=== PATIENT | female | born 2000 | race American Indian/Alaskan Native ===

== ENCOUNTER 2018-09-04 07:07 | Inpatient (IN) | payer MEDICAID ==
[2018-09-04] MEDS ORDERED: LACTATED RINGERS 1,000 ML ONE (07:41)
[2018-09-04 08:06] LABS: Basophils # (Auto) 0.1 K/mm3 (0.0-0.1); Basophils % (Auto) 0.6 % (0.0-1.8); Eosinophils # (Auto) 0.1 K/mm3 (0.0-0.4); Eosinophils % (Auto) 0.9 % (0.0-4.3); Hematocrit 34.3 % (30.3-42.9); Hemoglobin 11.6 gm/dl (10.1-14.3); Lymphocytes # (Auto) 2.6 K/mm3 (1.2-5.4); Lymphocytes % (Auto) 21.1 % (13.4-35.0); Mean Corpuscular HGB Conc 34 % (30-34); Mean Corpuscular Volume 91 fl (79-97); Monocytes # (Auto) 1.1 K/mm3 (0.0-0.8); Monocytes % (Auto) 8.6 % (0.0-7.3); Platelet Count 238 K/mm3 (140-440); Red Blood Count 3.77 M/mm3 (3.65-5.03); Red Cell Distribution Width 13.4 % (13.2-15.2)
[2018-09-04] MEDS: LACTATED RINGERS 1,000 ML IV SCH ×2 (08:23→09:20)
[2018-09-04] MEDS ORDERED: AMPICILLIN/NS 2 GM/100 ML 2 GM/100 ML BAG IV ONE ×2 (08:30→08:33)
[2018-09-04] MEDS ORDERED: BRETHINE IVP PRN (08:33)
[2018-09-04] MEDS ORDERED: SUBLIMAZE IV PRN (08:33)
[2018-09-04] MEDS ORDERED: XYLOCAINE 2% INFILTRATI ONE (08:33)
[2018-09-04] MEDS ORDERED: STADOL IV PRN (08:33)
[2018-09-04] MEDS ORDERED: ZOFRAN IV PRN ×2 (08:33→11:16)
[2018-09-04] MEDS ORDERED: BRETHINE SUB-Q PRN (08:33)
[2018-09-04] MEDS ORDERED: PITOCin/NS 30 UNIT/500ML 30 UNITS/500 ML BAG IV SCH ×2 (09:00)
[2018-09-04] MEDS ORDERED: LACTATED RINGERS 1,000 ML IV SCH (09:00)
[2018-09-04] MEDS ORDERED: PITOCin/NS 20 UNIT/1000ML DRIP 20 UNITS/1,000 ML BAG IV SCH ×2 (09:00→12:00)
--- NOTE | 2018-09-04 09:10 | Anesthesia Consultation ---
Anesthesia Consult and Med Hx - Airway Anesthetic Teeth Evaluation: Good ROM Head & Neck: Adequate Mental/Hyoid Distance: Adequate Mallampati Class: Class I Intubation Access Assessment: Good - Pulmonary Exam CTA: Yes - Cardiac Exam Cardiac Exam: RRR - Pre-Operative Health Status ASA Pre-Surgery Classification: ASA2 Proposed Anesthetic Plan: Epidural - Pulmonary Hx Smoking: No Hx Asthma: No - Cardiovascular System Hx Hypertension: No - Central Nervous System Hx Seizures: No Hx Psychiatric Problems: No - Endocrine Hx Renal Disease: No Hx Hypothyroidism: No Hx Hyperthyroidism: No - Hematic Hx Anemia: Yes Hx Sickle Cell Disease: No - Other Systems Hx Alcohol Use: No
--- NOTE | 2018-09-04 09:11 | Anesthesia Day of Surgery ---
Anesthesia Day of Surgery - Day of Surgery Patient Examined: Yes Patient H&P Reviewed: Yes Patient is NPO: Yes Beta Blockers: No Cardiac Clearance: No Pulmonary Clearance: No Tashi's Test: N/A
[2018-09-04] MEDS ORDERED: MARCAINE 0.5% INFILTRATI ONE (09:16)
[2018-09-04] MEDS ORDERED: LIDOCAINE 1.5%/EPI 1:200,000 INFILTRATI ONE (09:16)
[2018-09-04] MEDS ORDERED: NARCAN 2 MG/2 ML IV PRN (09:30)
[2018-09-04] MEDS ORDERED: fentaNYL-BUPIV 2 MCG/ML-0.125% 200 MCG/100 ML BAG EPIDURAL SCH (10:00)
--- NOTE | 2018-09-04 10:32 | History and Physical Report ---
History of Present Illness Date of examination: 09/04/18 Date of admission: 09/04/18 08:04 Chief complaint: Labor History of present illness: Pt is a 18yo BF EDC 09/22/18; EGA 37 2/7 weeks presents to L&D complaining of RUC's q 3-4 mins. She received late care at [facility] since 23 weeks and records are available and GBS is Negative. Past History Past Medical History: no pertinent history Past Surgical History: no surgical history Family/Genetic History: hypertension Social history: no significant social history, single - Obstetrical History Expected Date of Delivery: 09/22/18 Actual Gestation: 37 Week(s) 3 Day(s) : 3 Medications and Allergies Allergies Allergy/AdvReac Type Severity Reaction Status Date / Time No Known Allergies Allergy Verified 09/04/18 07:18 Home Medications Medication Instructions Recorded Confirmed Last Taken Type Pnv No.95/Ferrous Fum/Folic AC 1 each PO DAILY 07/17/18 07/17/18 07/15/18 14:00 History [Prenavite Tablet] 1 Active Meds: Active Medications Butorphanol Tartrate (Stadol) 2 mg IV Q2H PRN PRN Reason: Pain , Severe (7-10) Last Admin: 09/04/18 08:48 Dose: 2 mg Documented by: Ephedrine Sulfate (Ephedrine Sulfate) 10 mg IV Q2M PRN PRN Reason: Hypotension Fentanyl (Sublimaze) 100 mcg IV Q2H PRN PRN Reason: Labor Pain Ampicillin Sodium (Ampicillin/Ns 1 Gm/50 Ml) 1 gm in 50 mls @ 100 mls/hr IV Q4H [facility]; Protocol Lactated Ringer's (Lactated Ringers) 1,000 mls @ 125 mls/hr IV DIRECT [facility] Oxytocin/Sodium Chloride (Pitocin/Ns 20 Unit/1000ml Drip) 20 units in 1,000 mls @ 125 mls/hr IV DIRECT [facility] Oxytocin/Sodium Chloride (Pitocin/Ns 30 Unit/500ml) 30 units in 500 mls @ 1 mls/hr IV TITR [facility]; Protocol Oxytocin/Sodium Chloride (Pitocin/Ns 30 Unit/500ml) 30 units in 500 mls @ 4 mls/hr IV TITR [facility]; Protocol Fentanyl/Bupivacaine/Sodium Chlor (Fentanyl-Bupiv 2 Mcg/Ml-0.125%) 200 mcg in 100 mls @ 12 mls/hr EPIDURAL TITR [facility]; Protocol Last Admin: 09/04/18 09:50 Dose: 12 mls/hr Documented by: Mineral Oil (Mineral Oil) 30 ml PO QHS PRN PRN Reason: Constipation Naloxone HCl (Narcan 2 Mg/2 Ml) 0.2 mg IV Q5M PRN PRN Reason: Respiratory sedation Ondansetron HCl (Zofran) 4 mg IV Q8H PRN PRN Reason: Nausea And Vomiting Terbutaline Sulfate (Brethine) 0.25 mg SUB-Q ONCE PRN PRN Reason: Hyperstimulation/Hypertonicity Terbutaline Sulfate (Brethine) 0.25 mg IVP ONCE PRN PRN Reason: Hyperstimulation/Hypertonicity Review of Systems All systems: negative - Vital Signs Vital signs: Vital Signs Temp Resp 98.5 F 18 09/04/18 07:29 09/04/18 07:29 Temp Pulse Resp BP Pulse Ox 98.5 F 85 18 103/58 100 09/04/18 07:29 09/04/18 10:21 09/04/18 07:29 09/04/18 10:17 09/04/18 10:21 - Physical Exam Breasts: Positive: deferred Cardiovascular: Regular rate Lungs: Positive: Clear to auscultation Abdomen: Positive: normal appearance, soft Genitourinary (Female): Positive: normal external genitalia Vagina: Positive: normal moisture Uterus: Positive: enlarged Extremities: Positive: normal - Obstetrical FHR: category 1 Uterine Contraction Monitor Mode: External Cervical Dilatation: 8 Cervical Effacement Percentage: 100 station: 0 Uterine Contraction Pattern: Regular Uterine Tone Measurement Phase: Contraction Uterine Contraction Intensity: Moderate Results Result Diagrams: 09/04/18 07:50 Abnormal lab results 09/04/18 Range/Units 07:50 WBC 12.3 H (4.5-11.0) K/mm3 [place] % (Auto) 8.6 H (0.0-7.3) % [place] # 1.1 H (0.0-0.8) K/mm3 Seg Neutrophils # 8.5 H (1.8-7.7) K/mm3 All other labs normal. Assessment and Plan - Patient Problems (1) 37 weeks gestation of Onset Date: 09/04/18 Current Visit: Yes Status: Acute Plan to address problem: A: IUP @ 37 3/7 weeks in labor P: Admit to L&D for expectant vaginal delivery (2) Active labor Onset Date: 09/04/18 Current Visit: Yes Status: Acute
--- NOTE | 2018-09-04 11:14 | Procedure Note ---
OB Delivery Note - Delivery Date of Delivery: 09/04/18 Surgeon: JERE MENDOZA Estimated blood loss: 100cc - Vaginal Delivery presentation: vertex Delivery position: OA Intrapartum events: none Delivery induction: none Delivery augmentation: rupture of membranes Delivery monitor: external FHT, external uterine Route of delivery: Delivery placenta: spontaneous Delivery cord: nuchal cord, true knot, 3 umbilical vessels Episiotomy: none Delivery laceration: none Anesthesia: epidural Delivery comments: delivered OA and placed on Mom's chest for [id number] bonding and delayed cord clamping, cut by Dad - A at 1 minute: 8 at 5 minutes: 9 Infant Gender: Male ([id number])
[2018-09-04] MEDS ORDERED: DULCOLAX PR PRN (11:16)
[2018-09-04] MEDS ORDERED: PHENERGAN PO PRN (11:16)
[2018-09-04] MEDS ORDERED: BENADRYL PO PRN (11:16)
[2018-09-04] MEDS ORDERED: TYLENOL PO PRN (11:16)
[2018-09-04] MEDS ORDERED: TUCKS PAD TP PRN (11:16)
[2018-09-04] MEDS ORDERED: MILK OF MAGNESIA PO PRN (11:16)
[2018-09-04] MEDS ORDERED: PHENERGAN PR PRN (11:16)
[2018-09-04] MEDS ORDERED: LANSINOH TP PRN (11:16)
[2018-09-04] MEDS ORDERED: SODIUM CHLORIDE FLUSH SYRINGE 10 ML IV NR (12:00)
[2018-09-04] MEDS ORDERED: AMPICILLIN/NS 1 GM/50 ML 1 GM/50 ML BAG IV SCH (13:00)
[2018-09-04] MEDS: NORCO 5/325 PO PRN (15:35)
[2018-09-04] MEDS: IBUPROFEN PO SCH ×2 (18:37→23:55)
[2018-09-04] MEDS ORDERED: MINERAL OIL PO PRN (22:00)
[2018-09-04 23:06] LABS: Hematocrit 33.3 % (30.3-42.9); Hemoglobin 11.2 gm/dl (10.1-14.3)
[2018-09-04] MEDS: FEOSOL PO SCH (23:55)
[2018-09-04] MEDS: COLACE PO SCH (23:55)
[2018-09-05] MEDS ORDERED: BOOSTRIX IM ONE (06:00)
[2018-09-05] MEDS: IBUPROFEN PO SCH ×3 (06:06→17:53)
[2018-09-05] MEDS: FEOSOL PO SCH ×2 (10:42→22:26)
[2018-09-05] MEDS: COLACE PO SCH ×2 (10:43→22:26)
[2018-09-05] MEDS: PRENATAL VITAMIN PO SCH (10:43)
[2018-09-05] MEDS ORDERED: M-M-R II VACCINE SUB-Q ONE (11:16)
--- NOTE | 2018-09-05 23:05 | Progress Note ---
Assessment and Plan A: day 1 S/P . P:Anticipate discharge tomorrow. Subjective - Subjective Date of service: 09/05/18 Principal diagnosis: day 1 S/P Patient reports: appetite normal, voiding normally, pain well controlled, flatus, ambulating normally, no dizzy ambulation, no nauseated [place]: doing well Objective - Vital Signs Latest vital signs: Vital Signs Temp Pulse Resp BP 09/05/18 17:53 18 09/05/18 16:56 97.4 F L 71 18 120/58 09/05/18 12:44 18 09/05/18 08:32 98.6 F 81 18 108/60 09/05/18 06:32 18 09/05/18 06:06 18 09/05/18 01:40 98.4 F 91 H 18 108/60 09/05/18 00:55 18 09/04/18 23:55 18 Intake and Output 09/05/18 09/05/18 09/05/18 07:59 15:59 23:59 Intake Total 480 480 360 Balance 480 480 360 Intake: Oral 480 360 Intake, Free Water 480 Other: Total, Intake Amount 480 360 # Voids Void 1 - Exam Cardiovascular: Present: Regular rate, Normal S1, Normal S2 Lungs: Present: Clear to auscultation Abdomen: Present: normal appearance, soft, normal bowel sounds. Absent: distention, tenderness, guarding, rigidity Uterus: Present: normal, firm, fundal height below umbilicus. Absent: bogginess, tenderness Extremities: Present: normal. Absent: tenderness, edema
[2018-09-06] MEDS: IBUPROFEN PO SCH ×5 (03:05→19:00)
[2018-09-06] MEDS: NORCO 5/325 PO PRN ×2 (03:06→12:30)
[2018-09-06] MEDS: PRENATAL VITAMIN PO SCH (10:04)
[2018-09-06] MEDS: FEOSOL PO SCH (10:04)
[2018-09-06] MEDS: COLACE PO SCH (10:04)
[2018-09-06 18:52] VITALS: BP 113/51
--- NOTE | 2018-09-06 19:17 | Progress Note ---
Assessment and Plan A: day 2 S/P . P: Discharge patient home today. Rx Motrin 800 mg, #20, 1 po every 8 hours prn pain called to [facility] [place]. Discussed with patient use of medication and possible side effects. Advised pt. to continue taking her vitamin and iron supplement at home. discharge instructions and warning signs discussed with patient. Advised pt. to avoid IC, lifting and heavy housework, and driving. Advised pt. to call [facility] and obtain a 6 week follow up appointment. Patient voiced understanding of all discharge instructions. Subjective - Subjective Date of service: 09/06/18 Principal diagnosis: day 2 S/P Interval history: day 2 S/P . Doing well. Patient reports small amount of lochia. She is voiding without difficulty, amb ulating well, tolerating a regular diet. Patient denies headache, chest pain, cough, shortness of breath, leg pain, abdominal pain, or heavy bleeding. Patient requests discharge today. Patient reports: appetite normal, voiding normally, pain well controlled, flatus, ambulating normally, no dizzy ambulation, no nauseated [place]: doing well Objective - Vital Signs Latest vital signs: Vital Signs Temp Pulse Resp BP 09/06/18 15:57 98.3 F 80 18 113/51 09/06/18 08:12 98.4 F 76 18 102/58 09/06/18 03:06 18 09/06/18 03:05 18 09/06/18 00:00 98.4 F 82 18 104/56 Intake and Output 09/06/18 09/06/18 09/06/18 07:59 15:59 23:59 Intake Total 480 720 Balance 480 720 Intake: Oral 720 Intake, Free Water 480 Other: Total, Intake Amount 360 # Voids Void 1 - Exam Cardiovascular: Present: Regular rate, Normal S1, Normal S2, No murmurs Lungs: Present: Clear to auscultation Abdomen: Present: normal appearance, soft, normal bowel sounds. Absent: distention, tenderness, guarding, rigidity Uterus: Present: normal, firm, fundal height below umbilicus. Absent: bogginess, tenderness Extremities: Present: normal. Absent: tenderness, edema
--- NOTE | 2018-09-06 19:24 | Discharge Summary ---
Providers - Providers Date of Admission: 09/04/18 08:04 Date of discharge: 09/06/18 Attending physician: JERE MENDOZA None Primary care physician: [facility] Hospitalization Reason for admission: active labor Delivery: Other procedures: none complications: none Discharge diagnosis: IUP at term delivered [place] baby: male Pertinent studies: Labs Hospital course: Normal hospital course Condition at discharge: Good Disposition: DC-01 TO HOME OR SELFCARE - Discharge Diagnoses (1) Term delivered Status: Acute Plan - Provider Discharge Summary Activity: routine, no sex for 6 weeks, no heavy lifting 4 weeks, no strenuous exercise Diet: routine Instructions: routine Additional instructions: Call your doctor immediately for: * Fever > 100.5 * Heavy vaginal bleeding ( >1 pad per hour) * Severe persistent headache * Shortness of breath * Reddened, hot, painful area to leg or breast - Follow up plan Forms: C Discharge Summary, Discharge Signature Page
== END 2018-09-06 20:35 | disposition home or self-care (01) | DRG 775 ==
LOC: TRG 07:07 → LD 08:04 → OB 13:21
PROVIDERS: ADMIT Obstetrics & Gynecology; ATTEND Obstetrics & Gynecology
PROC: 10E0XZZ Delivery of Products of Conception, External Approach (ICD-10-PCS; principal; 2018-09-04)
PROC: 3E0R3BZ Introduction of Anesthetic Agent into Spinal Canal, Percutaneous Approach (ICD-10-PCS; 2018-09-04)
PROC: 00HU33Z Insertion of Infusion Device into Spinal Canal, Percutaneous Approach (ICD-10-PCS; 2018-09-04)
PROC: 3E0234Z Introduction of Serum, Toxoid and Vaccine into Muscle, Percutaneous Approach (ICD-10-PCS; 2018-09-05)
DX: O69.81X0 Labor and delivery complicated by cord around neck, without compression, not applicable or unspecified (principal); Z3A.37 37 weeks gestation of pregnancy; Z37.0 Single live birth; Z23 Encounter for immunization; Z82.49 Family history of ischemic heart disease and other diseases of the circulatory system
CPT/HCPCS: 36415; 85014; 85018; 85025; 86592; 86706; 86850; 86900; 86901; 90471; 90715; G0378; J0290; J0595; J2590; J7120